=== PATIENT | male | born 1960 | race Two or more races ===

== ENCOUNTER 2019-05-24 19:46 | Inpatient (IN) | payer SELFPAY ==
[~2019-05-24] VITALS: Ht 182.9 cm; Wt 95.2 kg
[2019-05-29 09:44] VITALS: BP 117/65
== END 2019-05-29 13:51 | disposition home or self-care (01) | DRG 153 ==
LOC: ED 23:34 → EDIP 23:50 → 3NE 05-25 00:10 → 4WST 05-26 17:28
PROVIDERS: ADMIT Internal Medicine; ATTEND Internal Medicine
DX: J06.9 Acute upper respiratory infection, unspecified (principal); R65.10 Systemic inflammatory response syndrome (SIRS) of non-infectious origin without acute organ dysfunction; D64.9 Anemia, unspecified; F17.210 Nicotine dependence, cigarettes, uncomplicated; K59.00 Constipation, unspecified; K76.0 Fatty (change of) liver, not elsewhere classified
CPT/HCPCS: 0399T; 36415; 71045; 71260; 74177; 76700; 80053; 80074; 81001; 82550; 83605; 83615; 83735; 84100; 84145; 84439; 84443; 84550; 85025; 85651; 86038; 86140; 86480; 86592; 86635; 87015; 87040; 87081; 87116; 87206; 87207; 87400; 87491; 87591; 87633; 87806; 87880; 93005; 93306; 93970; 94640; G0378; J1644; J1650; J2405; Q9967; G0475; J2270; J7030